=== PATIENT | female | born 1990 | race Caucasian/White ===

== ENCOUNTER 2016-09-22 11:52 | Emergency (ER) | payer MEDICAID ==
[2016-09-22 12:02] VITALS: BP 143/91; PULSE 80; RESP 16; TEMP 98.4; O2SAT 95
--- NOTE | 2016-09-22 12:15 | EDPHY ---
H & P Stated Complaint: L foot swelling and pain x 1 week.Reports cabinet falling on foot "long ago Time Seen by Provider: 09/22/16 12:07 HPI/ROS: Chief Complaint: Foot pain HPI: 18-year-old wounds been having left foot pain for the last week. It improved with ibuprofen comes back. Seems to be getting worse. She did have an injury about 3 weeks ago when she dropped a cabinet door on her foot. That he will was doing well and had had pain associated with it. No fevers or chills. No redness. Has had swelling which goes down with ice and ibuprofen. She has pain with ambulation. Pain is described mostly on the bottom of her foot. She does state she does quite a bit of running. ROS: 10 point Review of Systems is negative except as noted in the HPI. Social History: Positive smoking, occasional alcohol, [ no recreational drug use] Family History: [non-contributory] Physical Exam: General: Awake, alert, no acute distress Left leg: Left knee is nontender, full range of motion without pain, left ankle , nontender, full range of motion without pain, left foot, she has tenderness in the insertion of her plantar fascia. There is also some mild tenderness for the dorsum region of her distal 1st metatarsal. There is no erythema. Is not warm to the touch. Skin: No rash - Personal History LMP (Females 10-55): 1-7 Days Ago Current Tetanus Diphtheria and Acellular Pertussis (TDAP): Yes Tetanus Vaccine Date: within 10 years - Medical/Surgical History Hx Asthma: No Hx Chronic Respiratory Disease: No Hx Diabetes: No Hx Cardiac Disease: No Hx Renal Disease: No Hx Cirrhosis: No Hx Alcoholism: No Hx HIV/AIDS: No Hx Splenectomy or Spleen Trauma: No Other PMH: Cholecystectomy, tonsilectomy. 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 - Social History Smoking Status: Current every day smoker Constitutional: Initial Vital Signs Temperature (C) 36.9 C 09/22/16 11:54 Heart Rate 80 09/22/16 11:54 Respiratory Rate 16 09/22/16 11:54 Blood Pressure 143/91 H 09/22/16 11:54 O2 Sat (%) 95 09/22/16 11:54 O2 Delivery Mode Room Air Allergies/Adverse Reactions: vancomycin [Vancomycin] Allergy (Severe, Verified 09/22/16 12:02) Red Man Syndrome acetaminophen [From Vicodin] Allergy (Intermediate, Verified 09/22/16 12:02) Vomiting amoxicillin Allergy (Intermediate, Verified 09/22/16 12:02) Vomiting hydrocodone bitartrate [From Vicodin] Allergy (Intermediate, Verified 09/22/16 12:02) Vomiting Penicillins Allergy (Intermediate, Verified 09/22/16 12:02) Vomiting Home Medications: Medication Instructions Recorded NK [No Known Home Meds] 12/07/15 Medical Decision Making - Diagnostics Imaging Results: Foot x-rays negative for acute bony injury or foreign body. Per my interpretation. Imaging: I viewed and interpreted images myself ED Course/Re-evaluation: 26-year-old with plantar foot pain likely secondary to plantar fasciitis. She has no acute injury on her x-ray. I have given instructions for wearing shoes with good arch supports all the time and continue ibuprofen. She will follow up with primary care physician about a week for re-evaluation. She will return sooner for any concerns. Departure - Departure Disposition: Home, Routine, Self-Care Clinical Impression: Plantar fasciitis Condition: Good Instructions: Plantar Fasciitis (ED) Additional Instructions: Purchase arch supports from the drug store and wear good supportive shoes. Follow up with primary care physician in about a week for re-evaluation. Continue using ibuprofen and applying ice as needed for swelling or pain. Return to the emergency depart med for increasing pain, redness, fevers, chills , or any other concerns. Referrals: NONE *PRIMARY CARE P,. [Primary Care Provider] - As per Instructions
== END 2016-09-22 12:44 | disposition home or self-care (01) ==
LOC: CED 11:52
DX: M72.2 Plantar fascial fibromatosis (principal); F17.200 Nicotine dependence, unspecified, uncomplicated
CPT/HCPCS: 73630-PO

== ENCOUNTER 2016-12-28 11:50 | Emergency (ER) | payer OTHER, MEDICAID ==
[2016-12-28 12:01] VITALS: BP 149/93; PULSE 96; RESP 16; TEMP 98.2; O2SAT 96
[2016-12-28] MEDS ORDERED: TDAP ADULT 0.5 ML INJ (BOOSTRIX) IM ONE (12:03)
--- NOTE | 2016-12-28 12:06 | EDPHY ---
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 Time Seen by Provider: 12/28/16 11:56 HPI/ROS: CHIEF COMPLAINT: Laceration HISTORY OF PRESENT ILLNESS: Patient is a 18-year-old female who comes to the emergency department complaining of a laceration to her left index finger. She was chopping chicken salad when she accidentally cut her finger with a knife. It is over the radial aspect of the distal phalanx. Very minimal nail or nail bed involvement. Closed, bleeding controlled. Normal sensation and capillary refill. REVIEW OF SYSTEMS: Constitutional: denies: chills, fever, recent illness, recent injury EENTM: denies: blurred vision, double vision, nose congestion Respiratory: denies: cough, shortness of breath Cardiac: denies: chest pain, irregular heart rate, lightheadedness, palpitations Gastrointestinal/Abdominal: denies: abdominal pain, diarrhea, nausea, vomiting, blood streaked stools Genitourinary: denies: dysuria, frequency, hematuria, pain Musculoskeletal: denies: joint pain, muscle pain Skin: See HPI Neurological: denies: headache, numbness, paresthesia, tingling, dizziness, weakness Hematologic/Lymphatic: denies: blood clots, easy bleeding, easy bruising Immunologic/allergic: denies: HIV/AIDS, transplant EXAM: GENERAL: Well-appearing, well-nourished and in no acute distress. HEAD: Atraumatic, normocephalic. EYES: Pupils equal round and reactive to light, extraocular movements intact, sclera anicteric, conjunctiva are normal. ENT: TMs normal, nares patent, oropharynx clear without exudates. Moist mucous membranes. NECK: Normal range of motion, supple without lymphadenopathy or JVD. LUNGS: Breath sounds clear to auscultation bilaterally and equal. No wheezes rales or rhonchi. HEART: Regular rate and rhythm without murmurs, rubs or gallops. ABDOMEN: Soft, nontender, normoactive bowel sounds. No guarding, no rebound. No masses appreciated. BACK: No CVA tenderness, no spinal tenderness, step-offs or deformities EXTREMITIES: Normal range of motion, no pitting or edema. No clubbing or cyanosis. NEUROLOGICAL: Cranial nerves II through XII grossly intact. Normal speech, normal gait. 5/5 strength, normal movement in all extremities, normal sensation PSYCH: Normal mood, normal affect. SKIN: 1.5 cm flap-like laceration as described above. No visible bone or joint involvement. Source: Patient Exam Limitations: No limitations - Personal History LMP (Females 10-55): Unknown Current Tetanus/Diphtheria Vaccine: Unsure Current Tetanus Diphtheria and Acellular Pertussis (TDAP): Unsure Tetanus Vaccine Date: within 10 years - Medical/Surgical History Hx Asthma: No Hx Chronic Respiratory Disease: No Hx Diabetes: No Hx Cardiac Disease: No Hx Renal Disease: No Hx Cirrhosis: No Hx Alcoholism: No Hx HIV/AIDS: No Hx Splenectomy or Spleen Trauma: No Other PMH: Cholecystectomy, tonsilectomy. 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 - Family History Significant Family History: No pertinent family hx - Social History Smoking Status: Current every day smoker Alcohol Use: Sober Drug Use: None Constitutional: Initial Vital Signs Temperature (C) 36.8 C 12/28/16 11:55 Heart Rate 96 12/28/16 11:55 Respiratory Rate 16 12/28/16 11:55 Blood Pressure 149/93 H 12/28/16 11:55 O2 Sat (%) 96 12/28/16 11:55 O2 Delivery Mode Room Air Allergies/Adverse Reactions: vancomycin [Vancomycin] Allergy (Severe, Verified 12/28/16 12:02) Red Man Syndrome acetaminophen [From Vicodin] Allergy (Intermediate, Verified 12/28/16 12:02) Vomiting amoxicillin Allergy (Intermediate, Verified 12/28/16 12:02) Vomiting hydrocodone bitartrate [From Vicodin] Allergy (Intermediate, Verified 12/28/16 12:02) Vomiting Penicillins Allergy (Intermediate, Verified 12/28/16 12:02) Vomiting Home Medications: Medication Instructions Recorded Mucinex 12/28/16 Medical Decision Making Procedures: Procedure: Laceration repair. Verbal consent was obtained from the patient. The 1.5 cm finger laceration was anesthetized with 0.5% bupivacaine digital block. The wound was irrigated copiously according to protocol, draped and explored to its base. It was approximately 1/2 cm deep. There were no deep structures involved. No tendon, nerve, or vascular injury was identified when explored through full range of motion. No foreign body was identified. The wound was repaired with 5.0 Prolene, 4 sutures, interrupted. The wound repair was simple without wound margin revisement or multiple flap alignment. The procedure was performed by myself. A dressing was then placed with sterile gauze and bacitracin. ED Course/Re-evaluation: The patient's laceration was repaired. It does slightly involve the lateral aspect of the nail margin. We discussed possibly removing her nail and repairing underneath it. She refused this. I agree that it will likely heal well without nail removal. We discussed suture care and removal. We discussed follow-up. We discussed indications for returning. Differential Diagnosis: Partial list of the Differential diagnosis considered include but were not limited to; laceration, avulsion, nail bed injury, and although unlikely based on the history and physical exam, I also considered hematoma, fracture, open joint, tendon injury, nerve injury. I discussed these differential diagnoses and the plan with the patient as well as the usual and expected course. The patient understands that the diagnosis is provisional and that in medicine we are not always correct and that further workup is often warranted. Usual and customary warnings were given. All of the patient's] questions were answered. The [patient was] instructed to return to the emergency department should the symptoms at all worsen or return, otherwise to followup with the physician as we discussed. - Data Points Medications Given: Discontinued Medications Diphtheria/Tetanus/Acell Pertussis (Boostrix) 0.5 ml IM .ONCE ONE Stop: 12/28/16 12:04 Last Admin: 12/28/16 12:51 Dose: 0.5 ml Departure - Departure Disposition: Home, Routine, Self-Care Clinical Impression: Laceration Condition: Fair Instructions: Finger Laceration (ED) Additional Instructions: Have your sutures removed in 7-10 days. Referrals: Laila Freeman MD [Primary Care Provider] - As per Instructions
== END 2016-12-28 13:01 | disposition home or self-care (01) ==
LOC: CED 11:50
PROC: 0HQGXZZ Repair Left Hand Skin, External Approach (ICD-10-PCS; principal; 2016-12-28)
DX: S61.211A Laceration without foreign body of left index finger without damage to nail, initial encounter (principal); F17.200 Nicotine dependence, unspecified, uncomplicated; Z23 Encounter for immunization; W26.0XXA Contact with knife, initial encounter; Y92.69 Other specified industrial and construction area as the place of occurrence of the external cause; Y99.0 Civilian activity done for income or pay; Y93.89 Activity, other specified

== ENCOUNTER 2018-07-25 18:52 | Emergency (ER) | payer MEDICAID ==
--- NOTE | 2018-07-25 19:21 | EDPHY ---
H & P Time Seen by Provider: 07/25/18 19:21 HPI/ROS: Chief complaint. Blood in urine HPI. 28-year-old female presents with blood in urine for 1 day. She also has urinary frequency and dysuria with pressure in the suprapubic area with urination. She is 14 weeks . She does not believe that the blood is coming from vagina. She urinated in to toilet paper to make the difference and feels that the blood is definitely in the urine. Some discomfort in the low back. No flank tenderness. No fever. No vomiting. She has had frequent urinary tract infections. Last UTI was in March 2018. Patient is 3 para 1 ROS 10 systems were reviewed and negative with the exception of the elements mentioned in the history of present illness Past Medical/Surgical History: Cholecystectomy, tonsillectomy, MRSA, bilateral carpal tunnel symptoms, former IVDA Social History: , daily smoker, no alcohol Smoking Status: Current every day smoker Physical Exam: General Appearance: Alert pleasant well-developed female mild distress vital signs are stable. Eyes: Pupils equal and round no pallor or injection. ENT, Mouth: Mucous membranes are moist. Respiratory: There are no retractions, lungs are clear to auscultation. Cardiovascular: Regular rate and rhythm. Gastrointestinal: Abdomen is soft with mild suprapubic tenderness. No flank tenderness. No masses. Normal bowel sounds Neurological: Awake and alert, sensory and motor exams grossly normal. Skin: Warm and dry, no rashes. Musculoskeletal: Neck is supple nontender. Extremities symmetrical, full range of motion. Psychiatric: Patient is oriented X 3, there is no agitation. Constitutional: Initial Vital Signs Temperature (C) 36.9 C 07/25/18 19:13 Heart Rate 93 07/25/18 19:13 Respiratory Rate 20 07/25/18 19:13 Blood Pressure 120/71 07/25/18 19:13 O2 Sat (%) 97 07/25/18 19:13 O2 Delivery Mode Room Air Allergies/Adverse Reactions: vancomycin [Vancomycin] Allergy (Severe, Verified 07/25/18 19:12) Red Man Syndrome acetaminophen [From Vicodin] Allergy (Intermediate, Verified 07/25/18 19:12) Vomiting amoxicillin Allergy (Intermediate, Verified 07/25/18 19:12) Vomiting hydrocodone bitartrate [From Vicodin] Allergy (Intermediate, Verified 07/25/18 19:12) Vomiting Penicillins Allergy (Intermediate, Verified 07/25/18 19:12) Vomiting latex Allergy (Verified 07/25/18 19:12) Home Medications: Medication Instructions Recorded Cephalexin [Keflex (*)] 500 mg PO BID #10 cap 07/25/18 Vit27&Calcium/Iron/FA 07/25/18 [] Medical Decision Making Procedures: Urine point of care testing positive for leukocytes as well as blood and nitrites. It is sent for culture and sensitivity Cephalexin in the ED ED Course/Re-evaluation: Patient and I discussed laboratory evaluation, treatment plan including criteria for return. We discussed possibility of cross allergic reaction with cephalexin and amoxicillin and penicillin. We discussed being somewhat limited an antibiotic choice between allergies and her . She expresses understanding and agreement Differential Diagnosis: Urinary tract infection verses vaginal bleeding and threatened miscarriage - Data Points Point of Care Test Results: Urine Dip Collection Date 07/25/18 Collection Time 19:04 Specific [place] (1.002-1.030) 1.030 PH (5.0-7.5) 6.0 Leukocytes (Negative) 3+ Nitrites (Negative) Negative Protein (Negative) 3+ Glucose (Negative) Negative Ketones (Negative) Negative Urobilnogen (0.2-1.0 EU) 0.2 Bilirubin (Negative) Negative Blood (Negative) 3+ Departure - Departure Disposition: Home, Routine, Self-Care Clinical Impression: Urinary tract infection Condition: Good Instructions: Urinary Tract Infection in (ED) Additional Instructions: Drink plenty of fluids and stay hydrated Cephalexin twice daily for 1 week as antibiotic Return for worsening symptoms Recheck in 2 days if not improved Referrals: Demond MCPHERSON [Primary Care Provider] - 2-3 days, if not improved Prescriptions: Cephalexin [Keflex (*)] 500 mg PO BID #10 cap
[2018-07-25] MEDS ORDERED: CEPHALEXIN 500 MG CAP PO ONE (19:48)
[2018-07-25 20:05] VITALS: BP 124/66
== END 2018-07-25 20:05 | disposition home or self-care (01) ==
LOC: CED 18:52
DX: O08.83 Urinary tract infection following an ectopic and molar pregnancy (principal); R31.9 Hematuria, unspecified; Z3A.14 14 weeks gestation of pregnancy
CPT/HCPCS: 99283-ER